=== PATIENT | female | born 1990 | race Hispanic/Latino ===

== ENCOUNTER 2019-06-21 02:17 | Emergency (ER) | payer OTHER ==
[2019-06-21] MEDS ORDERED: NA CHLORIDE 0.9% 1,000 ML ONE (02:41)
[2019-06-21 02:48] LABS: Urine Blood 2+ (NEG); Urine Glucose NEGATIVE (NEG); Urine Protein NEGATIVE (NEG)
[2019-06-21 03:00] LABS: Absolute Lymphocytes (CBC) 3.1 K/uL (0.7-4.9); Basophils % 0.3 % (0-1.3); Hematocrit 32.9 % (36.0-45.0); Lymphocytes % 34.7 % (15.3-44.8); MPV 8.3 fL (7.6-11.3); RBC Red Blood Cell Count 3.92 M/uL (3.86-4.86)
[2019-06-21 03:38] LABS: BUN Blood Urea Nitrogen 7 mg/dL (7-18); Bicarbonate 24 mmol/L (21-32); Glucose Level 91 mg/dL (74-106); HCG, Quantitative 84612 mIU/mL (1-3); Potassium 3.4 mmol/L (3.5-5.1); Sodium Level 138 mmol/L (136-145)
--- NOTE | 2019-06-21 04:20 | EDPHYS ---
Physician Documentation [facility] Name: Elodia Prasad Age: 28 yrs Sex: Female : 1990 Arrival Date: 06/21/2019 Time: 02:19 Bed 13 Private MD: ED Physician Kedar Calvert HPI: 06/20 04:15 This 28 yrs old Female presents to ER via Ambulatory with complaints of dilan Vaginal Bleeding, + Preg <12wks. 04:15 The patient presents to the emergency department with vaginal bleeding. The estimated dilan gestational age is 10 weeks. course: care: private OB physician, Dr. campuzano. Previous pregnancies: in previous pregnancies patient has had vaginal delivery, no complications. Associated signs and symptoms: The patient has no apparent associated signs or symptoms. The patient has not experienced similar symptoms in the past. LUMBER ESTIMATOR: 02:32 LMP 03/20/2019, Verified, EDC 12/25/2019, Gestational age from LMP: 13 weeks 2 sg days 04:15 2, Full Term 1, Premature 0, 0, Living 1 dilan Historical: - Allergies: 02:32 No Known Allergies; sg - Home Meds: 02:32 Vitamin Oral 1 tab once daily [Active]; sg - PMHx: 02:47 None; sg - PSHx: 02:32 None; sg - Immunization history:: Adult Immunizations up to date. - Social history:: Smoking status: Patient denies any tobacco usage or history of. - Family history:: not pertinent. ROS: 04:15 Constitutional: Negative for fever, chills, and weight loss, Eyes: Negative for injury, dilan pain, redness, and discharge, ENT: Negative for injury, pain, and discharge, Neck: Negative for injury, pain, and swelling, Cardiovascular: Negative for chest pain, palpitations, and edema, Respiratory: Negative for shortness of breath, cough, wheezing, and pleuritic chest pain, Abdomen/GI: Negative for abdominal pain, nausea, vomiting, diarrhea, and constipation, Back: Negative for injury and pain, MS/Extremity: Negative for injury and deformity, Skin: Negative for injury, rash, and discoloration, Neuro: Negative for headache, weakness, numbness, tingling, and seizure, Psych: Negative for depression, anxiety, suicide ideation, homicidal ideation, and hallucinations, Allergy/Immunology: Negative for hives, rash, and allergies, Endocrine: Negative for neck swelling, polydipsia, polyuria, polyphagia, and marked weight changes, Hematologic/Lymphatic: Negative for swollen nodes, abnormal bleeding, and unusual bruising. 04:15 : Positive for vaginal bleeding. Exam: 04:15 Constitutional: This is a well developed, well nourished patient who is awake, alert, dilan and in no acute distress. Head/Face: Normocephalic, atraumatic. Eyes: Pupils equal round and reactive to light, extra-ocular motions intact. Lids and lashes normal. Conjunctiva and sclera are non-icteric and not injected. Cornea within normal limits. Periorbital areas with no swelling, redness, or edema. ENT: Nares patent. No nasal discharge, no septal abnormalities noted. Tympanic membranes are normal and external auditory canals are clear. Oropharynx with no redness, swelling, or masses, exudates, or evidence of obstruction, uvula midline. Mucous membranes moist. Neck: Trachea midline, no thyromegaly or masses palpated, and no cervical lymphadenopathy. Supple, full range of motion without nuchal rigidity, or vertebral point tenderness. No Meningismus. Chest/axilla: Normal chest wall appearance and motion. Nontender with no deformity. No lesions are appreciated. Cardiovascular: Regular rate and rhythm with a normal S1 and S2. No gallops, murmurs, or rubs. Normal PMI, no JVD. No pulse deficits. Respiratory: Lungs have equal breath sounds bilaterally, clear to auscultation and percussion. No rales, rhonchi or wheezes noted. No increased work of breathing, no retractions or nasal flaring. Abdomen/GI: Soft, non-tender, with normal bowel sounds. No distension or tympany. No guarding or rebound. No evidence of tenderness throughout. Back: No spinal tenderness. No costovertebral tenderness. Full range of motion. Skin: Warm, dry with normal turgor. Normal color with no rashes, no lesions, and no evidence of cellulitis. MS/ Extremity: Pulses equal, no cyanosis. Neurovascular intact. Full, normal range of motion. Neuro: Awake and alert, GCS 15, oriented to person, place, time, and situation. Cranial nerves II-XII grossly intact. Motor strength 5/5 in all extremities. Sensory grossly intact. Cerebellar exam normal. Normal gait. Psych: Awake, alert, with orientation to person, place and time. Behavior, mood, and affect are within normal limits. Vital Signs: 02:32 BP 104 / 66; Pulse 87; Resp 16 S; Temp 98.2; Pulse Ox 100% on R/A; Weight 56.7 kg; sg Height 5 ft. 5 in. (165.10 cm); Pain 6/10; 03:29 BP 122 / 64; Pulse 77; Resp 17; Pulse Ox 100% on R/A; sg 02:32 Body Mass Index 20.80 (56.70 kg, 165.10 cm) MDM: 02:28 Patient medically screened. [facility] 04:17 Data reviewed: vital signs, nurses notes, lab test result(s), radiologic studies, [facility] ultrasound. 06/20 02:29 Order name: Quantitative Hcg; Complete Time: 04:17 [facility] 06/20 02:29 Order name: Abo/rh Typing; Complete Time: 04:17 [facility] 06/20 02:29 Order name: Basic Metabolic Panel; Complete Time: 04:17 [facility] 06/20 02:29 Order name: CBC with Diff; Complete Time: 04:17 [facility] 06/20 02:46 Order name: Urine Dipstick--Ancillary (enter results); Complete Time: 04:17 [facility] 06/20 02:46 Order name: Urine --Ancillary (enter results); Complete Time: 04:17 [facility] 06/20 02:29 Order name: Urine Test (obtain specimen); Complete Time: 02:55 [facility] 06/20 02:29 Order name: IV Saline Lock; Complete Time: 02:54 [facility] 06/20 02:29 Order name: Labs collected and sent; Complete Time: 02:54 [facility] 06/20 02:29 Order name: NPO; Complete Time: 02:55 [facility] 06/20 02:29 Order name: Urine Dipstick-Ancillary (obtain specimen); Complete Time: 02:55 [facility] 06/20 04:14 Order name: 1St Trimest Single 1St Fetus EDMS 06/20 04:18 Order name: PO challenge: juice x1; Complete Time: 04:19 [facility] Administered Medications: 02:50 Drug: NS 0.9% 1000 ml Route: IV; Rate: 1 bolus; Site: right antecubital; sk Point of Care Testing: Urine : 02:32 hCG Reading: Positive; Control Reading: Negative; sg Disposition: 06/21/19 04:19 Discharged to Home. Impression: Threatened . - Condition is Stable. - Discharge Instructions: Threatened Miscarriage, Vaginal Bleeding During , First Trimester, First Trimester of , Qsae-td-Gnzy, First Trimester of , Threatened Miscarriage, Qqna-hd-Vxmq, Pelvic Rest, Hypokalemia. - Prescriptions for Vitamin 27- 0.8 mg Oral Tablet - take 1 tablet by ORAL route once daily; 30 tablet. - Medication Reconciliation Form, Thank You Letter, Antibiotic Education, Prescription Opioid Use form. - Follow up: Private Physician; When: 2 - 3 days; Reason: Recheck today's complaints, Continuance of care, Re-evaluation by your physician. Follow up: Flako Campuzano MD; When: 2 - 3 days; Reason: Recheck today's complaints, Continuance of care, Re-evaluation by your physician. - Problem is new. - Symptoms have improved. Signatures: Dispatcher [employer] [facility] Rory Olvera RN RN sg Anderson, Corey, MD MD cha Kozak, Stephanie, RN RN sk Corrections: (The following items were deleted from the chart) 04:14 02:30 Transvaginal Study (Probe)+US.RAD.BRZ ordered. [facility] 04:33 04:19 06/21/2019 04:19 Discharged to Home. Impression: Threatened . Condition sg is Stable. Forms are Medication Reconciliation Form, Thank You Letter, Antibiotic Education, Prescription Opioid Use. Follow up: Private Physician; When: 2 - 3 days; Reason: Recheck today's complaints, Continuance of care, Re-evaluation by your physician. Follow up: Flako Campuzano; When: 2 - 3 days; Reason: Recheck today's complaints, Continuance of care, Re-evaluation by your physician. Problem is new. Symptoms have improved. dilan
--- NOTE | 2019-06-21 04:20 | ER ---
Nurse's Notes [facility] Name: Elodia Prasad Age: 28 yrs Sex: Female : 1990 Arrival Date: 06/21/2019 Time: 02:19 Bed 13 Private MD: Diagnosis: Threatened Presentation: 06/20 02:32 Chief complaint: Patient states: Vaginal bleeding, light flow with clots, reports is 12 sg wks , is experiencing lower abd cramping as well, concerned might be miscarriage. Coronavirus screen: Proceed with normal triage. Ebola Screen: Patient negative for fever greater than or equal to 101.5 degrees Fahrenheit, and additional compatible Ebola Virus Disease symptoms Patient denies exposure to infectious person. Patient denies travel to an Ebola-affected area in the 21 days before illness onset. No symptoms or risks identified at this time. Risk Assessment: Do you want to hurt yourself or someone else? Patient reports no desire to harm self or others. Onset of symptoms was June 20, 2019. Care prior to arrival: None. 02:32 Method Of Arrival: Ambulatory sg 02:32 Acuity: PETRA 3 sg 02:32 Initial Sepsis Screen: Does the patient meet any 2 criteria? No. Patient's initial sg sepsis screen is negative. Does the patient have a suspected source of infection? No. Patient's initial sepsis screen is negative. WIRER MAINTENANCE: 02:32 LMP 03/20/2019, Verified, EDC 12/25/2019, Gestational age from LMP: 13 weeks 2 sg days 04:15 2, Full Term 1, Premature 0, 0, Living 1 dilan Historical: - Allergies: 02:32 No Known Allergies; sg - Home Meds: 02:32 Vitamin Oral 1 tab once daily [Active]; sg - PMHx: 02:47 None; sg - PSHx: 02:32 None; sg - Immunization history:: Adult Immunizations up to date. - Social history:: Smoking status: Patient denies any tobacco usage or history of. - Family history:: not pertinent. Screenin:30 Abuse screen: Denies threats or abuse. Denies injuries from another. Nutritional sg screening: No deficits noted. Tuberculosis screening: No symptoms or risk factors identified. Never had TB. Fall Risk None identified. Assessment: 02:30 Obstetrical Assessment: General assessment: awake and alert, skin warm and dry, sg respirations even and unlabored, Patient reports abdominal cramping. General: Behavior is calm, cooperative, appropriate for age. Pain: Complains of pain in suprapubic area Quality of pain is described as crampy, sharp, squeezing. Neuro: Level of Consciousness is awake, alert, obeys commands, Oriented to person, place, time, Manager Report are equal bilaterally Moves all extremities. Speech is normal, Facial symmetry appears normal. Cardiovascular: Capillary refill is brisk in bilateral fingers Patient's skin is warm and dry. Respiratory: Airway is patent Respiratory effort is even, unlabored, Respiratory pattern is regular, symmetrical. GI: Abdomen is round non-distended. : Reports pain in suprapubic area vaginal bleeding that is bright red, with clots, light flow, spotty. EENT: No signs and/or symptoms were reported regarding the EENT system. Derm: Skin is pink, warm \T\ dry. Musculoskeletal: Circulation, motion, and sensation intact. Range of motion: intact in all extremities. Vital Signs: 02:32 BP 104 / 66; Pulse 87; Resp 16 S; Temp 98.2; Pulse Ox 100% on R/A; Weight 56.7 kg; sg Height 5 ft. 5 in. (165.10 cm); Pain 6/10; 03:29 BP 122 / 64; Pulse 77; Resp 17; Pulse Ox 100% on R/A; sg 02:32 Body Mass Index 20.80 (56.70 kg, 165.10 cm) sg ED Course: 02:19 Patient arrived in ED. cl3 02:28 Kedar Calvert MD is Attending Physician. dilan 02:30 Rory Olvera, REESE is Primary Nurse. sg 02:30 Arm band placed on. sg 02:30 Patient has correct armband on for positive identification. Bed in low position. Call sg light in reach. Side rails up X2. Pulse ox on. NIBP on. Warm blanket given. Head of bed elevated. 02:34 Triage completed. sg 02:42 Inserted saline lock: 20 gauge in right antecubital area, using aseptic technique. sk 02:42 Initial lab(s) drawn, by ED staff, sent to lab. sg 03:50 Patient taken to ultrasound. via wheelchair. sg 04:12 Ultrasound completed. Patient tolerated well. Note: prelim given to dr calvert. lc3 Patient moved back from ultrasound. 04:14 1St Trimest Single 1St Fetus In Process Unspecified. EDMS 04:18 Flako Urbina MD is Referral Physician. [facility] 04:30 No provider procedures requiring assistance completed. IV discontinued, intact, sg bleeding controlled, No redness/swelling at site. Pressure dressing applied. Administered Medications: 02:50 Drug: NS 0.9% 1000 ml Route: IV; Rate: 1 bolus; Site: right antecubital; Point of Care Testing: Urine : 02:32 hCG Reading: Positive; Control Reading: Negative; sg Outcome: 04:19 Discharge ordered by MD. dilan 04:30 Discharged to home ambulatory, with family. 04:30 Condition: good 04:30 Discharge instructions given to patient, family, Instructed on discharge instructions, follow up and referral plans. no drinking with medication, medication usage, safety practices, Demonstrated understanding of instructions, follow-up care, Prescriptions given X 1. 04:33 Patient left the ED. sg Signatures: Dispatcher [employer] EDMS Rory Olvera, RN RN Kedar Stapleton MD MD cha Kozak, Stephanie, RN RN Rod Busby Charde cl3 Corrections: (The following items were deleted from the chart) 03:03 02:30 : Reports pain in suprapubic area sg sg
[2019-06-21 04:40] VITALS: TEMP 98.2; O2SAT 100
[2019-06-21 04:42] VITALS: BP 122/64
--- NOTE | 2019-06-21 12:21 | RAD REPORT ---
EXAM DESCRIPTION: 1St Trimest Single 1St Fetus CLINICAL HISTORY: ABD CRAMPING, COMPARISON: None. TECHNIQUE: High-resolution grayscale transabdominal sonographic evaluation of the pelvis. Color flow utilized. FINDINGS: Uterus: Anteverted. Intrauterine gestational sac identified with a pole. Average crown-rump john gth is 6.05 cm corresponding to 12 weeks, 3 day gestation. cardiac activity is detected at 161 bpm. The placenta is posterior inferior. Cervical length is 4.7 cm. Internal os is closed. Right ovary: 2.5 x 2.1 x 2.3 cm. There is a right ovarian 1.7 cm follicle. Left ovary: 2.6 x 1.0 x 1.6 cm. Left ovary appears normal. Peritoneum: No pelvic free fluid. Unremarkable included bladder. IMPRESSION: 1. Uncomplicated live intrauterine 12 week, 3 day gestation. MANUEL: 03/01/2020 Electronically signed by: Diane Sena DO 06/21/2019 4:46 AM CDT Due to temporary technical issues with the PACS/Fluency reporting system, reports are being signed by the in house radiologist as a courtesy to ensure prompt reporting. The interpreting radiologist is f ully responsible for the content of the report.
== END 2019-06-21 04:33 | disposition home or self-care (01) ==
LOC: ER 02:17
DX: O20.0 Threatened abortion (principal); Z3A.10 10 weeks gestation of pregnancy
CPT/HCPCS: 85025; 80048; 36415; 86900; 81025; 86901; 84702; 81003; 76801; 99284; J7030

== ENCOUNTER 2019-12-04 10:04 | Inpatient (IN) | payer OTHER ==
--- OUTSIDE RECORDS SUMMARY | 2019-12-04 10:30 | XMS REPORT | Continuity of Care Document ---
:1990 Author Organization [facility] t Address [address] [place] [address] [address]. [address] [place] [address] Care Team Providers Name Role Phone Sol Jung Attending Clinician [phone] Lab, Fam Pob I Attending Clinician Unavailable Pob1, Care Clinic Attending Clinician Unavailable Fellow, Rmchp Mfm Attending Clinician Unavailable Lab Attending Clinician Unavailable Problems This patient has no known problems. Allergies, Adverse Reactions, Alerts This patient has no known allergies or adverse reactions. Medications This patient has no known medications. Procedures This patient has no known procedures. Encounters Start End Encounter Admission Attending Care Care Encounter Source Date/Time Date/Time Type Type Clinicians Facility Department ID 2019-10-10 2019-10-10 Letter KAYDEN Hodgson [id number] 00:00:00 00:00:00 (Out) Sol Loyola EXPERIMENTAL ELECTRONICS DEVELOPER [id number] [facility] [id number] MATERNAL [id number] & CHILD 107 [facility] 2019-09-20 2019-09-20 Telephone KAYDEN Hodgson [id number] 00:00:00 00:00:00 Sol Loyola EXPERIMENTAL ELECTRONICS DEVELOPER [id number] [facility] [id number] MATERNAL [id number] & CHILD 107 [facility] 2019-09-20 2019-09-20 Telephone KAYDEN Hodgson [id number] 00:00:00 00:00:00 Sol C EXPERIMENTAL ELECTRONICS DEVELOPER [id number] [facility] [id number] MATERNAL [id number] & CHILD 107 [facility] 2019-09-04 2019-09-04 Telephone Lab, [facility] [id number] 00:00:00 00:00:00 Fam Pob I Health [id number] [place] [id number] Professio [id number] nal 044 Office [facility] 2019-09-03 2019-09-03 Urgent Pob1, Acute [facility] [id number] 10:00:57 10:20:57 Pse&[facility] [id number] [place] [id number] Professio [id number] nal [facility] Office [facility] 2019-07-25 2019-07-25 Telephone [facility], [facility] [id number] 00:00:00 00:00:00 Sol C EXPERIMENTAL ELECTRONICS DEVELOPER [id number] [facility] [id number] MATERNAL [id number] & CHILD 107 [facility] 2019-06-26 2019-06-26 [facility] [id number] 07:48:06 12:09:35 ne Visit Sol C EXPERIMENTAL ELECTRONICS DEVELOPER [id number] REG[facility] [id number] MATERNAL [id number] & CHILD 107 [facility] 2019-06-20 2019-06-20 Telemedici [facility] [id number] 07:57:11 08:27:11 ne Visit Rmchp Mfm EXPERIMENTAL ELECTRONICS DEVELOPER [id number] [facility] [id number] MATERNAL [id number] & CHILD 124 [facility] 2019-06-07 2019-06-07 Plug Sorter Lab, [facility] [id number] 08:07:41 08:22:41 Visit Ang-Rmchp EXPERIMENTAL ELECTRONICS DEVELOPER [id number] REG[facility] [id number] MATERNAL [id number] & CHILD 107 [facility] 2019-05-31 2019-05-31 Plug Sorter Lab, [facility] [id number] 08:22:39 08:57:58 Visit Omid EXPERIMENTAL ELECTRONICS DEVELOPER [id number] [facility] [id number] MATERNAL [id number] & CHILD 107 [facility] Results This patient has no known results.
[2019-12-04 10:52] LABS: Absolute Lymphocytes (CBC) 1.7 K/uL (0.7-4.9); Basophils % 0.4 % (0-1.3); Hematocrit 36.2 % (36.0-45.0); Lymphocytes % 16.4 % (15.3-44.8); MPV 10.7 fL (7.6-11.3); RBC Red Blood Cell Count 4.03 M/uL (3.86-4.86)
[2019-12-04 10:52] LABS: Urine Appearance CLEAR; Urine Bilirubin NEGATIVE (NEG); Urine Blood NEGATIVE (NEG); Urine Color YELLOW; Urine Glucose NEGATIVE (NEG); Urine Protein NEGATIVE (NEG); Urine Urobilinogen 0.2 mg/dL (0.2-1.0)
[2019-12-04 10:59] LABS: Protime INR 0.92
[2019-12-04 11:05] LABS: Urine Microscopic Reflex ORDER UMIC
[2019-12-04 11:18] LABS: Urine Bacteria >50 /HPF (<20); Urine RBC NONE SEEN /HPF (NONE SEEN)
[2019-12-04 11:19] LABS: Urine Culture Reflex Order REFLEXED
[2019-12-04 11:31] LABS: ALT/SGPT 81 U/L (12-78); AST/SGOT 38 U/L (15-37); Albumin 2.6 g/dL (3.4-5.0); Alkaline Phosphatase 254 U/L (45-117); BUN Blood Urea Nitrogen 7 mg/dL (7-18); Bicarbonate 24 mmol/L (21-32); Bilirubin Direct 0.1 mg/dL (0-0.2); Bilirubin Total 0.4 mg/dL (0.2-1.0); Glucose Level 78 mg/dL (74-106); Potassium 3.8 mmol/L (3.5-5.1); Protein, Total 7.2 g/dL (6.4-8.2); Sodium Level 139 mmol/L (136-145); Uric Acid 4.1 mg/dL (2.6-6.0)
[2019-12-04] MEDS ORDERED: SIMETHICONE 125 MG TAB PO PRN (11:39)
[2019-12-04] MEDS ORDERED: SIMETHICONE 80 MG TAB ONE (11:55)
[2019-12-19] MEDS ORDERED: METHYLERGONOVINE 0.2MG/ML AMP IM PRN (20:04)
[2019-12-19] MEDS ORDERED: CARBOPROST TROME 250 MCG/ML IM PRN (20:04)
[2019-12-19] MEDS ORDERED: Ringers Lactate 1,000 ML IV PRN (20:04)
[2019-12-19] MEDS ORDERED: PROMETHAZINE INJ 25 MG/ML AMP IM PRN (20:04)
[2019-12-19] MEDS ORDERED: BUTORPHANOL 1 MG/ML INJ IV PRN (20:04)
[2019-12-19 20:22] VITALS: BMI 25.3
[2019-12-19 20:37] LABS: Absolute Lymphocytes (CBC) 2.5 K/uL (0.7-4.9); Basophils % 0.2 % (0-1.3); Hematocrit 36.9 % (36.0-45.0); Lymphocytes % 20.1 % (15.3-44.8); RBC Red Blood Cell Count 4.11 M/uL (3.86-4.86)
[2019-12-19 20:52] LABS: Urine Appearance CLOUDY; Urine Bilirubin NEGATIVE (NEG); Urine Blood NEGATIVE (NEG); Urine Color DK YELLOW; Urine Glucose NEGATIVE (NEG); Urine Protein NEGATIVE (NEG); Urine Specific Gravity 1.025 (1.005-1.030); Urine pH 6.5 (5.0-7.0)
[2019-12-19 20:53] LABS: Urine Bacteria LOADED /HPF (<20); Urine Culture Reflex Order REFLEXED; Urine Microscopic Reflex ORDER UMIC; Urine Mucus 1+ /HPF (NONE SEEN); Urine RBC <5 /HPF (NONE SEEN)
[2019-12-19] MEDS ORDERED: Ringers Lactate 1,000 ML IV SCH (21:00)
[2019-12-19] MEDS ORDERED: OXYTOCIN/LR 1,000 ML IV SCH (21:00)
[2019-12-19] MEDS ORDERED: OXYTOCIN/LR 20 UNIT/1,000 ML BAG IV SCH (21:54)
[2019-12-19 22:04] LABS: RPR (Rapid Plasma Reagin) NON-REACT (NON-REACT)
[2019-12-19] MEDS ORDERED: LIDOCAINE 1% MPF 30 ML VIAL SQ ONE (22:49)
[2019-12-20] MEDS ORDERED: ACETAMINOPHEN 500 MG TAB PO PRN (06:58)
[2019-12-20] MEDS ORDERED: DIPHENHYDRAMINE 25 MG TAB/CAP PO PRN (06:58)
[2019-12-20] MEDS ORDERED: Oxycodone HCl/Acetaminophen 1 TAB TAB PO PRN (06:58)
[2019-12-20] MEDS ORDERED: DOCUSATE NA/SENNA CONC 1 TAB PO PRN (06:58)
[2019-12-20] MEDS ORDERED: BISACODYL 10 MG RECTAL SUPP RC PRN (06:58)
[2019-12-20] MEDS ORDERED: OXYTOCIN/LR 20 UNIT/1,000 ML BAG IV SCH (07:00)
[2019-12-20] MEDS ORDERED: INFLUENZA VACCINE (for 3y+) 0.5 ML DOSE IMVAC ONE (09:00)
[2019-12-20] MEDS ORDERED: Ringers Lactate 2,000 ML IV ONE (11:26)
[2019-12-20] MEDS: IBUPROFEN 600 MG TAB PO PRN ×2 (12:22→19:00)
[2019-12-20] MEDS: Oxycodone HCl/Acetaminophen 1 TAB TAB PO PRN ×2 (14:40→21:48)
[2019-12-21] MEDS: Oxycodone HCl/Acetaminophen 1 TAB TAB PO PRN ×2 (01:56→05:56)
[2019-12-21 08:16] VITALS: BP 126/65; TEMP 98
[2019-12-21] MEDS ORDERED: Tdap (Diph,Pertuss(Acell),Tet Vac) 0.5 ML SYR IMVAC ONE (08:20)
[2019-12-21] MEDS ORDERED: INFLUENZA VACCINE (for 3y+) 0.5 ML DOSE IMVAC ONE (09:02)
--- NOTE | 2019-12-23 10:25 | DS ---
Date of Discharge: 12/21/2019 29-year-old 2, para 1, at 38 weeks 2 days, came in with spontaneous rupture of membranes in e maria del carmen labor. During her labor received three 1 mg doses of Stadol and delivered at 38 weeks and 3 day s of a 6 pounds 15 ounces male infant Apgars 9 and 9. Second-degree laceration simulating episiotomy repaired with 2-0 chromic under local infiltration. Schultze delivery of the placenta inspected and noted to be intact and normal. 350 mL or less blood loss. The patient is Rh positive, immune to ru tucker, negative beta strep screen, negative COVID, status , afebrile, ambulating, voiding. Lochia is normal. She has ankle and pretibial edema but her blood pressures are all completely norm al. She requests analgesics on dismissal as she is having after pains. She has taken Percocet here in the hospital. We will give her tramadol. She knows this goes through the breast milk. Offered f rojelio shot and Tdap again prior to dismissal. Final Diagnoses: Term intrauterine , delivery at 38 weeks 3 days. Tdap and flu shots offer ed. NATI/JAMAAL Voice ID: [id number] Report ID: [id number]
--- NOTE | 2019-12-23 10:28 | PN ---
The patient is now completely dilated, began to push. She has had 3 doses of Stadol during the labor , but the baby still has good variability. Anticipate delivery relatively soon. NATI/JAMAAL Voice ID: [id number] Report ID: [id number]
--- NOTE | 2019-12-23 10:28 | DN ---
Surgeon: Flako Urbina MD A 29-year-old 2, para 1, 38 weeks 2 days, admitted in early labor, 38 weeks 3 days, vaginal d elivery. During the labor, received Stadol 1 mg 3 times. Second stage of about 25 to 30 minutes or less, spontaneous vaginal delivery of a 6 pounds 15-ounce male, Apgars 9 and 9. Small second-degree laceration simulating episiotomy repaired with 2-0 chromic under local infiltration. Melissa johnson of the placenta, which was inspected and noted to be intact and normal. Estimated blood loss to t his 350 cc. The patient tolerated all procedures well. Final Diagnoses: Intrauterine gestation, 38 weeks 2 days, spontaneous labor, 38 weeks 3 days, vagina l delivery. NATI/JAMAAL Voice ID: [id number] Report ID: [id number]
--- NOTE | 2019-12-23 10:31 | PREOPHP ---
Date of Admission: 12/19/2019 History: A 28-year-old 2, para 1, 38 weeks 2 days, followed an antepartum without complicati ons, admitted to Labor and Delivery reporting contractions. Indeed, the patient is chichi every 2-3 minutes very firmly. She is now 3-3.5 cm, 60% effaced, vertex, -1 station well applied. Cervix is very posterior. The patient is in labor. She is Rh positive, immune to Rubella. Negative beta strep screen. Admission talk given. Family History: Noncontributory other than a couple of family members born with congenital blindness . She has had no surgery. Allergies: SHE HAS NO ALLERGIES. Medications: She has been taking vitamins and iron. Social History: She does not smoke. Physical Examination: HEENT: Clear. Pupils are equal, round, and reactive to light and accommodation. Conjunctivae well perfused. No oral, lingual, or buccal lesions. Chest and Lungs: Clear. Heart: Without murmurs, thrills, heaves, or rubs on previous visits. Extremities: Clear without edema, cyanosis, or clubbing. Pelvis: As stated. The patient had a first baby spontaneously at 38 weeks and 3 days, and should be the same when she delivers this baby. She requests no epidural, and of course, none will be given unless the patient changes her mind. Adm it for stabilization and delivery. NATI/JAMAAL Voice ID: [id number]
== END 2019-12-21 10:00 | disposition home or self-care (01) | DRG 807 ==
LOC: L&D 10:04 → 2ND-WC 12-19 19:18
PROVIDERS: ADMIT Specialist; ATTEND Specialist
PROC: 10E0XZZ Delivery of Products of Conception, External Approach (ICD-10-PCS; principal; 2019-12-20)
PROC: 0KQM0ZZ Repair Perineum Muscle, Open Approach (ICD-10-PCS; 2019-12-20)
DX: O70.1 Second degree perineal laceration during delivery (principal); Z37.0 Single live birth; Z3A.38 38 weeks gestation of pregnancy; Z23 Encounter for immunization; Z20.828 Contact with and (suspected) exposure to other viral communicable diseases
CPT/HCPCS: 36415; 74018; 80048; 80076; 81003; 81015; 84550; 85025; 85610; 85730; 86592; 86850; 86900; 86901; 87086; 87088; 87340; 90715; 99218; J0595; J2210; J2550; J2590; J7120; Q2035; U0003